=== PATIENT | female | born 1995 | race Two or more races ===

== ENCOUNTER 2019-04-07 22:36 | Emergency (ER) | payer SELFPAY ==
[~2019-04-07] VITALS: Ht 157.5 cm; Wt 58.9 kg
[2019-04-07 22:38] VITALS: BP 111/79
== END 2019-04-08 00:34 | disposition left against medical advice (07) ==
LOC: M ED 22:36
DX: Z53.21 Procedure and treatment not carried out due to patient leaving prior to being seen by health care provider (principal)

== ENCOUNTER 2019-09-29 16:01 | Emergency (ER) | payer OTHER, SELFPAY ==
[~2019-09-29] VITALS: Ht 157.5 cm; Wt 73.5 kg
[2019-09-29 16:02] VITALS: BP 125/75
[2019-09-29] MEDS ORDERED: diphenhydrAMINE 50MG/ML VIAL (J1200) IV STA (16:25)
[2019-09-29] MEDS ORDERED: METOCLOPRAMIDE INJ 10MG/2ML VIAL (J2765 PER 1) IV ONE (16:30)
[2019-09-29] MEDS ORDERED: NS 1,000 ML IV ONE (16:30)
--- NOTE | 2019-09-29 17:35 | REP ---
CT brain: 09/29/2019. Indication: Stroke. Technique: Unenhanced axial CT images of the brain were obtained from skull base to vertex. Comparison: None. Findings: There is no acute intracranial hemorrhage, acute cortical infarction, mass effect or hydrocephalous. Impression: No acute intracranial process. Electronically Signed by Rajat Weber DO 09/29/2019 05:26 P
--- NOTE | 2019-09-29 17:56 | REPVR ---
PROCEDURE INFORMATION: Exam: MR Head Without Contrast Exam date and time: 09/29/2019 5:47 PM Age: 24 years old Clinical indication: Visual disturbance and weakness, facial; Additional info: Right paresthesia/vision loss TECHNIQUE: Imaging protocol: MR of the head without contrast. COMPARISON: CT Head without contrast 09/29/2019 4:24 PM FINDINGS: Brain: No intracranial hemorrhage or extra-axial fluid collection. No evidence of mass effect or midline shift. No white matter abnormalities. No restricted diffusion to suggest acute infarct. Ventricles: Ventricles, cisterns, and sulci are normal. Bones/joints: Unremarkable. Sinuses: Unremarkable. Mastoid air cells: No mastoid effusion. Orbits: Unremarkable. Soft tissues: Unremarkable. IMPRESSION: No acute intracranial findings. Electronically signed by: Benito Weston On 09/29/2019 17:56:34 PM
--- NOTE | 2019-09-29 17:57 | REPVR ---
PROCEDURE INFORMATION: Exam: MR Angiogram Head Without Contrast, Arteries Exam date and time: 09/29/2019 5:47 PM Age: 24 years old Clinical indication: Visual disturbance; Diplopia; Additional info: Right paresthesia/vision loss TECHNIQUE: Imaging protocol: MR angiogram head without contrast. Exam focused on the arteries. 3D rendering: MIP and/or 3D reconstructed images were created by the technologist. COMPARISON: CT Head without contrast 09/29/2019 4:24 PM FINDINGS: Anterior cerebral arteries: Intracranial segment is patent with no significant stenosis. No aneurysm. Right internal carotid artery: Intracranial segment is patent with no significant stenosis. No aneurysm. Right middle cerebral artery: No occlusion or significant stenosis. No aneurysm. Right posterior cerebral artery: No occlusion or significant stenosis. No aneurysm. Right vertebral artery: No occlusion or significant stenosis. No aneurysm. Left internal carotid artery: Intracranial segment is patent with no significant stenosis. No aneurysm. Left middle cerebral artery: No occlusion or significant stenosis. No aneurysm. Left posterior cerebral artery: No occlusion or significant stenosis. No aneurysm. Left vertebral artery: No occlusion or significant stenosis. No aneurysm. Basilar artery: No occlusion or significant stenosis. No aneurysm. IMPRESSION: No MRA evidence of intracranial arterial occlusion or significant stenosis. Electronically signed by: Benito Weston On 09/29/2019 17:57:17 PM
[2019-09-29] MEDS ORDERED: KETOROLAC 30 MG/ML 1ML VIAL IV ONE (18:00)
== END 2019-09-29 19:27 | disposition home or self-care (01) ==
LOC: M ED 16:01
DX: G43.809 Other migraine, not intractable, without status migrainosus (principal)
CPT/HCPCS: 70450; 70544; 70551; 96361; 96374; 96375; 99283; J1200; J1885; J2765

== ENCOUNTER 2019-12-06 12:09 | Emergency (ER) | payer OTHER ==
[~2019-12-06] VITALS: Ht 157.5 cm; Wt 77.1 kg
[2019-12-06] MEDS ORDERED: [UNRECOGNIZED DRUG - OTHER] (12:16)
[2019-12-06] MEDS ORDERED: dexameTHASONE 4 MG/ML 1ML VIAL (J1100 PER 1MG) IV ONE (13:30)
[2019-12-06] MEDS ORDERED: NS 1,000 ML IV ONE (13:30)
[2019-12-06] MEDS ORDERED: ACETAMINOPHEN 500 MG TAB PO ONE (13:30)
[2019-12-06] MEDS ORDERED: diphenhydrAMINE 50MG/ML VIAL (J1200) IV ONE (13:30)
[2019-12-06] MEDS ORDERED: KETOROLAC 30 MG/ML 1ML VIAL IM ONE (13:30)
[2019-12-06] MEDS ORDERED: KETOROLAC 30 MG/ML 1ML VIAL IV ONE (14:00)
[2019-12-06 14:01] LABS: BASO # 0.1 10^3/uL (0.0-0.2); BASO % 0.7 % (0.0-1.0); EOS # 0.1 10^3/uL (0.0-0.5); EOS % 1.1 % (0.0-3.0); HEMATOCRIT 41.3 % (36.0-47.0); HEMOGLOBIN 13.5 g/dl (12.0-15.5); LYMPH # 2.8 10^3/uL (1.5-5.0); LYMPH % 34.7 % (24.0-44.0); MEAN CORPUSCULAR HEMOGLOBIN 27.6 pg (27.0-33.0); MEAN CORPUSCULAR HGB CONC 32.7 g/dl (32.0-36.5); MEAN CORPUSCULAR VOLUME 84.5 fl (80.0-96.0); MONO # 0.5 10^3/uL (0.0-0.8); MONO % 6.1 % (0.0-5.0); NEUTROPHILS # 4.6 10^3/uL (1.5-8.5); NEUTROPHILS % 57.2 % (36.0-66.0); PLATELET COUNT, AUTOMATED 366 10^3/uL (150-450); RED BLOOD COUNT 4.89 10^6/uL (4.00-5.40); WHITE BLOOD COUNT 8.1 10^3/uL (4.0-10.0)
--- NOTE | 2019-12-06 14:47 | REPVR ---
PROCEDURE INFORMATION: Exam: CT Head Without Contrast Exam date and time: 12/06/2019 2:29 PM Age: 24 years old Clinical indication: Weakness, facial; Additional info: L sided facial weakness TECHNIQUE: Imaging protocol: Computed tomography of the head without contrast. Radiation optimization: All CT scans at this facility use at least one of these dose optimization techniques: automated exposure control; mA and/or kV adjustment per patient size (includes targeted exams where dose is matched to clinical indication); or iterative reconstruction. COMPARISON: CT Head without contrast 09/29/2019 4:24 PM FINDINGS: Brain: Normal. No hemorrhage. Unremarkable white matter. No mass effect. Ventricles: No ventriculomegaly. Bones/joints: Unremarkable. No acute fracture. Paranasal sinuses: Visualized sinuses are unremarkable. No fluid levels. Mastoid air cells: Visualized mastoid air cells are well aerated. Soft tissues: Unremarkable. IMPRESSION: No acute intracranial abnormality. Electronically signed by: Ruth Rodriguez On 12/06/2019 14:47:17 PM
[2019-12-06 15:09] VITALS: BP 110/72
[2019-12-06 15:13] LABS: BLOOD UREA NITROGEN 12 MG/DL (7-18); CALCIUM LEVEL 8.3 MG/DL (8.5-10.1); CARBON DIOXIDE LEVEL 26 MEQ/L (21-32); CHLORIDE LEVEL 109 MEQ/L (98-107); GLOMERULAR FILTRATION RATE > 60.0 (>60); GLUCOSE, FASTING 97 MG/DL (70-100); POTASSIUM SERUM 3.9 MEQ/L (3.5-5.1); SODIUM LEVEL 142 MEQ/L (136-145)
== END 2019-12-06 15:14 | disposition home or self-care (01) ==
LOC: M ED 12:09
DX: G43.909 Migraine, unspecified, not intractable, without status migrainosus (principal)
CPT/HCPCS: 36415; 70450; 80048; 85025; 96361; 96374; 96375; 99284; J1100; J1200; J1885

== ENCOUNTER 2021-02-28 10:01 | Emergency (ER) | payer OTHER ==
[~2021-02-28] VITALS: Ht 157.5 cm; Wt 77.3 kg
[~2021-02-28 10:01] MED LIST: [UNRECOGNIZED DRUG - OTHER]
--- OUTSIDE RECORDS SUMMARY | 2021-02-28 10:06 | CCD | Continuity of Care Document ---
Author Author Lion MCINTOSH M.D. Organization Unknown Address [address] [place] [address] Phone [phone] Problems Active Problems Provider Date Migraine Breana Mcintosh M.D. Onset: 12/24/2019 Social History Type Date Description Comments Sex Unknown Tobacco Use Start: Unknown Patient has never smoked Allergies and adverse reactions Description No Known Drug Allergies Medications Active Medications SIG Qnty Indications Ordering Provide r Date Amitriptyline HCL 25mg Tablets Take 2 tabs at bedtime for 1 week then 1 tab at bedtime for one week then stop. 21corey Mcintosh M.D. 01/25/2021 Amitriptyline HCL 75mg Tablets Take one tablet at bedtime. 30corey Mcintosh M.D. 021 Nurtec 75mg Tablets Dispers take at the immediate onset of migraine. Contraindication for Triptans with history of complex migraines. 8corey Mcintosh M.D. 020 Excedrin Migraine [phone] Tab lets 1-2 tabs as needed daily for headaches. 60tapamella gallegos M.D. Medications Administered in Office Medication SIG Qnty Indications Ordering Provider Date Injection fremanezumab-vfrm 1 Inj ection Breana Mcintosh M.D. 07/07/2020 Immunizations Description No Information Available Vital Signs Date Vital Result Comment 01/25/2021 12:18pm Respiratory Rate 12 /min Height 62 inches 5'2" Weight 154.00 lb BMI (Body Mass Index) 28.2 kg/m2 [place] [facility] Weight 110 lb 10/19/2020 11:31am Respiratory Rate 12 /min Height 62 inches 5'2" Weight 154.00 lb BMI (Body Mass Index) 28.2 kg/m2 [place] Body Weight 110 lb Results Description No Information Available Procedures Date Code Description Status 10/19/2020 67232 Office/Outpatient Established Mo d MDM 30-39 Min Completed Medical Devices Description No Information Available Encounters Type Date Location Provider Dx Diagnosis Office Visit 10/19/2020 11:15a Main office - [place] Breana gallegos M.D. G43.719 Chronic migraine w/o aura, intractable, w/o stat migr Assessments Date Code Description Provider 01/25/2021 G43.719 Chronic migraine wit hout aura, intractable, without status migrainosus Breana Mcintosh M.D. 10/19/2020 G43.719 Chronic migraine wit hout aura, intractable, without status migrainosus Breana Mcintosh M.D. Plan of Treatment No Information Available Functional Status Description No Information Available Mental Status Description No Information Available Referrals Description No Information Available
--- OUTSIDE RECORDS SUMMARY | 2021-02-28 10:06 | CCD | Continuity of Care Document ---
Author Author Lion MCINTOSH M.D. Organization Unknown Address [address] [place] [address] Phone [phone] Problems Active Problems Provider Date Migraine Breana [...] 75mg Tablets Take one tablet at bedtime. 30tapamella Mcintosh M.D. 021 Nurtec 75mg Tablets Dispers take at the immediate onset of migraine. Contraindication for Triptans with history of complex migraines. 8corey Mcintosh M.D. 020 Excedrin Migraine [phone] Tab lets 1-2 tabs as needed daily for headaches. 60tapamella gallegos M.D. Medications Administered in Office Medication SIG Qnty Indications Ordering Provider Date Injection fremanezumab-vfrm 1 Inj ection Breana Mcintosh M.D. 07/07/2020 Immunizations Description No Information Available Vital Signs Date Vital Result Comment 01/25/2021 12:18pm Respiratory Rate 12 /min Height 62 inches 5'2" Weight 154.00 lb BMI (Body Mass Index) 28.2 kg/m2 [place] Body Weight 110 lb 10/19/2020 11:31am Respiratory Rate 12 /min Height 62 inches 5'2" Weight 154.00 lb BMI (Body Mass Index) 28.2 kg/m2 [place] Body Weight 110 lb Results Description No Information Available Procedures Date Code Description Status 01/25/2021 86693 Office/Outpatient Established Mo d MDM 30-39 Min Completed 10/19/2020 18825 Office/Outpatient Established Mo d MDM 30-39 Min Completed Medical Devices Description No Information Available Encounters Type Date Location Provider Dx Diagnosis Office Visit 01/25/2021 11:30a Main office - [place] Breana gallegos M.D. G43.719 Chronic migraine w/o aura, intractable, w/o stat migr Office Visit 10/19/2020 11:15a [place] G43.719 Chronic migraine w/o aura, [...]
--- OUTSIDE RECORDS SUMMARY | 2021-02-28 10:06 | CCD ---
Author Author [facility] Organization [facility] Address Unknown Phone Unavailable Care Team Providers Care Supervisor Curing Room Name Role Phone Bharati STRONG MD Unavailable Unavailable Bharati STRONG MD Unavailable Unavailable Bharati STRONG MD Unavailable Unavailable Bharati STRONG MD Unavailable Unavailable Bharati STRONG MD Unavailable Unavailable Bharati STRONG MD Unavailable Unavailable Bharati STRONG MD Unavailable Unavailable Bharati STRONG MD Unavailable Unavailable Bharati STRONG MD Unavailable Unavailable Bharati STRONG MD Unavailable Unavailable Bharati STRONG MD Unavailable Unavailable Bharati STRONG MD Unavailable Unavailable Bharati STRONG MD Unavailable Unavailable Bharati STRONG MD Unavailable Unavailable Bharati STRONG MD Unavailable Unavailable Bharati STRONG MD Unavailable Unavailable TURRIN, BOO Unavailable Unavailable TURRIN, BOO Unavailable Unavailable TURRIN, BOO Unavailable Unavailable TACORIN, BOO Unavailable Unavailable Chi Sol MD Unavailable Unavailable Chi Sol MD Unavailable Unavailable Chi Sol MD Unavailable Unavailable Chi Sol MD Unavailable Unavailable Chi Sol MD Unavailable Unavailable Chi Sol MD Unavailable Unavailable Chi Sol MD Unavailable Unavailable Chi Sol MD Unavailable Unavailable Chi Sol MD Unavailable Unavailable Chi Sol MD Unavailable Unavailable Chi Sol MD Unavailable Unavailable Chi Sol MD Unavailable Unavailable Chi Sol MD Unavailable Unavailable Chi Sol MD Unavailable Unavailable Chi Sol MD Unavailable Unavailable Chi Sol MD Unavailable Unavailable Sol, Chi Charles MD Unavailable Unavailable Sol, Chi Charles MD Unavailable Unavailable Sol, Chi Charles MD Unavailable Unavailable Sol, Chi Charles MD Unavailable Unavailable Sol, Chi Charles MD Unavailable Unavailable Sol, Chi Charles MD Unavailable Unavailable Sol, Chi Charles MD Unavailable Unavailable Sol, Chi Charles MD Unavailable Unavailable Sol, Chi Charles MD Unavailable Unavailable Sol, Chi Charles MD Unavailable Unavailable Sol, Chi Charles MD Unavailable Unavailable Sol, L Melvin WELSH Unavailable Unavailable Sol, Chi Charles MD Unavailable Unavailable Sol, L Melvin WELSH Unavailable Unavailable Sol, L Melvin WELSH Unavailable Unavailable Sol, L Melvin WELSH Unavailable Unavailable Sol, L Melvin WELSH Unavailable Unavailable Sol, L Melvin WELSH Unavailable Unavailable Sol, L Melvin WELSH Unavailable Unavailable Sol, L Melvin WELSH Unavailable Unavailable Sol, L Melvin WELSH Unavailable Unavailable Sol, L Melvin WELSH Unavailable Unavailable Sol, Chi Charles MD Unavailable Unavailable Sol, Chi Charles MD Unavailable Unavailable Sol, Chi Charles MD Unavailable Unavailable Sol, Chi Charles MD Unavailable Unavailable Sol, Chi Charles MD Unavailable Unavailable Sol, Chi Charles MD Unavailable Unavailable Sol, Chi Charles MD Unavailable Unavailable Sol, Chi Charles MD Unavailable Unavailable Sol, Chi Charles MD Unavailable Unavailable Sol, Chi Charles MD Unavailable Unavailable Sol, Chi Charles MD Unavailable Unavailable Sol, Chi Charles MD Unavailable Unavailable Sol, Chi Charles MD Unavailable Unavailable Sunita Gardner MD Unavailable Unavailable Sunita Gardner MD Unavailable Unavailable Sunita Gardner MD Unavailable Unavailable Sunita Gardner MD Unavailable Unavailable Sunita Gardner MD Unavailable Unavailable Sunita Gardner MD Unavailable Unavailable Sunita Gardner MD Unavailable Unavailable Sunita Gardner MD Unavailable Unavailable Sunita Gardner MD Unavailable Unavailable Sunita Gardner MD Unavailable Unavailable Sunita Gardner MD Unavailable Unavailable Sunita Gardner MD Unavailable Unavailable Sunita Gardner MD Unavailable Unavailable Jj O Breana WELSH Unavailable Unavailable Sunita Gardner MD Unavailable Unavailable Sunita Gardner MD Unavailable Unavailable Sunita Gardner MD Unavailable Unavailable Sunita Gardner MD Unavailable Unavailable Sunita Gardner MD Unavailable Unavailable Jj O Breana WELSH Unavailable Unavailable Sunita Gardner MD Unavailable Unavailable Sunita Gardner MD Unavailable Unavailable Sunita Gardner MD Unavailable Unavailable Sunita Gardner MD Unavailable Unavailable Sunita Gardner MD Unavailable Unavailable Sunita Gardner MD Unavailable Unavailable Sunita Gardner MD Unavailable Unavailable Sunita Gardner MD Unavailable Unavailable Sunita Gardner MD Unavailable Unavailable Sunita Gardner MD Unavailable Unavailable Sunita Gardner MD Unavailable Unavailable Sunita Gardner MD Unavailable Unavailable Sunita Gardner MD Unavailable Unavailable Sunita Gardner MD Unavailable Unavailable Sunita Gardner MD Unavailable Unavailable Sunita Gardner MD Unavailable Unavailable Sunita Gardner MD Unavailable Unavailable Sunita Gardner MD Unavailable Unavailable Sunita Gardner MD Unavailable Unavailable Sunita Gardner MD Unavailable Unavailable Sunita Gardner MD Unavailable Unavailable Sunita Gardner MD Unavailable Unavailable Sunita Gardner MD Unavailable Unavailable Sunita Gardner MD Unavailable Unavailable Sunita Gardner MD Unavailable Unavailable Sunita Gardner MD Unavailable Unavailable Sunita Gardner MD Unavailable Unavailable Sunita Gardner MD Unavailable Unavailable Sunita Gardner MD Unavailable Unavailable Sunita Gardner MD Unavailable Unavailable Sunita Gardner MD Unavailable Unavailable Sunita Gardner MD Unavailable Unavailable Sunita Gardner MD Unavailable Unavailable Sunita Gardner MD Unavailable Unavailable Sunita Gardner MD Unavailable Unavailable Sunita Gardner MD Unavailable Unavailable Sunita Gardner MD Unavailable Unavailable Sunita Gardner MD Unavailable Unavailable Sunita Gardner MD Unavailable Unavailable Sunita Gardner MD Unavailable Unavailable Sunita Gardner MD Unavailable Unavailable Sunita Gardner MD Unavailable Unavailable Sunita Gardner MD Unavailable Unavailable Sunita Gardner MD Unavailable Unavailable Sunita Gardner MD Unavailable Unavailable Jj, O Samah MD Unavailable Unavailable Jj, O Samah MD Unavailable Unavailable Jj, O Samah MD Unavailable Unavailable Jj, O Samah MD Unavailable Unavailable Jj, O Samah MD Unavailable Unavailable Jj, O Samah MD Unavailable Unavailable Jj, O Samah MD Unavailable Unavailable Jj, O Samah MD Unavailable Unavailable Jj, O Samah MD Unavailable Unavailable Jj, O Samah MD Unavailable Unavailable Jj, O Samah MD Unavailable Unavailable Jj, O Samah MD Unavailable Unavailable Jj, O Samah MD Unavailable Unavailable Jj, O Samah MD Unavailable Unavailable Jj, O Samah MD Unavailable Unavailable Bharati STRONG MD Unavailable Unavailable Bharati STRONG MD Unavailable Unavailable Bharati STRONG MD Unavailable Unavailable ZBharati JESSICA MD Unavailable Unavailable Bharati STRONG MD Unavailable Unavailable Bharati STRONG MD Unavailable Unavailable Bharati STRONG MD Unavailable Unavailable Bharati STRONG MD Unavailable Unavailable Bharati STRONG MD Unavailable Unavailable Bharati STRONG MD Unavailable Unavailable Bharati STRONG MD Unavailable Unavailable Bharati STRONG MD Unavailable Unavailable Bharati STRONG MD Unavailable Unavailable Bharati STRONG MD Unavailable Unavailable Bharati STRONG MD Unavailable Unavailable Bharati STRONG MD Unavailable Unavailable [facility] Unavailable Unavailable Bharati Bonilla MD Unavailable Unavailable Bharati Bonilla MD Unavailable Unavailable Bharati Bonilla MD Unavailable Unavailable Bharati Bonilla MD Unavailable Unavailable Bharati Bonilla MD Unavailable Unavailable Bharati Bonilla MD Unavailable Unavailable Bharati Bonilla MD Unavailable Unavailable Re-disclosure Warning The records that you are about to access may contain information from federally-assisted alcohol or drug abuse programs. If such information is present, then the following federally mandated warning applies: This information has been disclosed to you from records protected by federal confidentiality rules (42 CFR part 2). The federal rules prohibit you from making any further disclosure of this information unless further disclosure is expressly permitted by the written consent of the person to whom it pertains or as otherwise permitted by 42 CFR part 2. A general authorization for the release of medical or other information is NOT sufficient for this purpose. The Federal rules restrict any use of the information to criminally investigate or prosecute any alcohol or drug abuse patient.The records that you are about to access may contain highly sensitive health information, the redisclosure of which is protected by Article 27-F of the [facility] Public Health law. If you continue you may have access to information: Regarding HIV / AIDS; Provided by facilities licensed or operated by the [facility] Office of Mental Health; or Provided by the [facility] Office for People With Developmental Disabilities. If such information is present, then the following [facility] mandated warning applies: This information has been disclosed to you from confidential records which are protected by state law. State law prohibits you from making any further disclosure of this information without the specific written consent of the person to whom it pertains, or as otherwise permitted by law. Any unauthorized further disclosure in violation of state law may result in a fine or shelter sentence or both. A general authorization for the release of medical or other information is NOT sufficient authorization for further disc losure. Allergies and Adverse Reactions Type Description Substance Reaction Status Data Source(s ) No Known Drug Allergies No Known Drug Allergies [facility] No Known Environmental Allergies No Known Environmental Al lergies [facility] No Known Food Allergies No Known Food Allergies [facility] Encounters Encounter Providers Location Date Indications Data Source(s ) Outpatient Attender: Breana Gardner MD [facility] 01/25/2021 11:30:00 AM EDT [facility] ([facility], ) Outpatient Attender: Breana Gardner MD [facility] 10/19/2020 11:15:00 AM EDT [facility] ([facility], ) Outpatient Attender: Héctor Bonilla MDConsultant: AUBREY RHODES CROW 07/10/2020 06:30:00 AM EDT - 07/10/2020 09:50:00 AM EDT [facility] Patient discharged. Outpatient Attender: Breana Gardner MD [facility] 07/06/2020 10:15:00 AM EDT [facility] ([facility], ) Outpatient Attender: Héctor Bonilla MD 07/05 06:59:07 AM EDT - 07/06/2020 07:41:00 AM EDT [facility] Patient discharged. Outpatient Attender: Breana Gardner MD Main office - [facility] 04/17/2020 10:15:00 AM EST [facility] ([facility] Outpatient Attender: CARMEN STRONG MD 2019 07:36:00 AM EST - 02/09/2020 08:36:00 AM EST [facility] Patient discharged. Outpatient Attender: CARMEN STRONG MD 2019 01:01:00 PM EST - 01/31/2020 01:01:00 PM EST [facility] Office Visit Attender: CARMEN STRONG MD Family Practice 2019 12:00:00 PM EST [facility] ([facility] Outpatient Attender: Melvin Sol MD Physical Therapy 01/26/2020 0 1:30:00 PM EST [facility] ([facility]) Emergency Attender: BOO FELTON 2019 09:43:00 PM EDT - 12/28/2019 12:42:00 AM EDT [facility] Patient discharged. Medications Medication Brand Name Start Date Product Form Dose Route Admi nistrative Instructions Pharmacy Instructions Status Indications Reaction Description Data Source(s) Amitriptyline Hydrochloride 25 MG Oral Tablet Amitriptyline HCL 01/25/2021 12:00:00 AM EDT active M [facility] ([facility], ) Amitriptyline Hydrochloride 75 MG Oral Tablet Amitriptyline HCL 08/07/2020 12:00:00 AM EDT active [facility] ([facility], ) Injection fremanezumab-vfrm 1 07/07/2020 12:00:00 AM EDT completed [facility] ([facility]) Medication administered onsite topiramate 50 MG Oral Tablet Topiramate 07/06/2020 12:00:00 AM EDT completed [facility] ([facility]) Amitriptyline Hydrochloride 50 MG Oral Tablet Amitriptyline HCL 07/06/2020 12:00:00 AM EDT completed [facility] ([facility], ) Ajovy Ajovy 07/06/2020 12:00:00 AM EDT SUBCUTANEOUS com pleted [facility] ([facility]) Amitriptyline Hydrochloride 25 MG Oral Tablet Amitriptyline HCL 04/17/2020 12:00:00 AM EST completed [facility] ([facility]) calcium polycarbophil 625 MG Oral Tablet [FiberCon] Fibercon 11/24/2019 12:00:00 AM EDT ORAL completed [facility] ([facility]) Insurance Providers Payer name Policy type / Coverage type Policy ID Covered alliance party ID Covered alliance party's relationship to nam Policy Nam Plan Information [facility] [employer] [id number] SP [id number] [facility] [employer] [place] [employer] [id number] [id number] [facility] [place] [id number] 18 [id number] [facility] [employer] [place] [id number] 18 [id number] SELF PAY ONLY [id number] SP [id number] Problems, Conditions, and Diagnoses Code Display Name Description Problem Type Effective Dates Data Source(s) [id number] Ganglion, right wrist Ganglion, right wrist Diagnosis 07/10/2020 06:30:00 AM EDT [facility] [id number] Encounter for other preprocedural examin ation Encounter for other preprocedural examination Diagnosis 07/06/2020 07:13:00 AM EDT [facility] R1033 Periumbilical pain Periumbilical pain Diagnosis 07:36:00 AM [facility] Surgeries/Procedures Procedure Description Date Indications Data Source(s) OFFICE OUTPATIENT VISIT 25 MINUTES 01/25/2021 12:00:00 AM EDT [facility] ([facility]) OFFICE OUTPATIENT VISIT 25 MINUTES 10/19/2020 12:00:00 AM EDT [facility] ([facility]) Chemotherpy Admin Subcutaneous/Im Non-Hormonal Anti-Neoplast ic 07/07/2020 12:00:00 AM EDT [facility] ([facility]) OFFICE OUTPATIENT VISIT 25 MINUTES 07/06/2020 12:00:00 AM EDT [facility] ([facility]) Magnetic Resonance Angiogtaphy Head W/O Contrast Material(S) 01/11/2020 12:00:00 AM EDT [facility] ([facility]) Magnetic Resonance Angiogtaphy Head W/O Contrast Material(S) 01/11/2020 12:00:00 AM EDT [facility] ([facility]) MRI BRAIN BRAIN STEM W/O CONTRAST MATERIAL 01/11/2020 12:00:00 AM EDT [facility] ([facility], ) MRI BRAIN BRAIN STEM W/O CONTRAST MATERIAL 01/11/2020 12:00:00 AM EDT [facility] ([facility], ) Results ID Date Data Source [id number] 07/10/2020 09:06:[place] [address] OPERATIVE SUMMARYNAME: BOBBY Mireles DATE OF : 1995ATTENDING PHYS: Héctor Bonilla MD DATE: 07/10/20 MR#: [id number] OF PROCEDURE: 07/10/2020URGEON: Héctor Bonilla MD.SAFETY COORDINATOR: SANDRA Garcia.INDICATION FOR OPERATION: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 She had exhausted non-operative treatmentand requested surgical excision. She was counseled on the risks and benefits of surgery. Shedemonstrated understanding of the risks of surgery to include, but not limited to infection, bleeding,damage to local structures, pain, stiffness, need for further surgery, recurrence, and she was able tosign informed consent. All questions were answered to her full satisfaction.PRE-OP DIAGNOSIS: Right wrist dorsal ganglion.POST-OP DIAGNOSIS: Right wrist dorsal ganglion.MATERIAL FORWARDED: None.DESCRIPTION OF THE FINDINGS:Patient had an approximately 2 x 1 cm cyst arising from the SL interval. This was removed en bloc.A small portion of the capsule was torn as it came out. This was then repaired with 3-0 FiberWire.The patient was then taken through a super-physiological range of motion of her wrist. Itdemonstrated stability, no instability of the wrist joint.INFECTION CLASSIFICATION: I, clean.ESTIMATED BLOOD LOSS: 0 cc.OPERATION PERFORMED: Right wrist dorsal ganglion excision.DESCRIPTION OF OPERATION:The patient was met in the pre-op holding area, where the correct name, identity, operative site, andlaterality of the procedure were verified to be correct without discrepancies. The operative site wasmarked by myself. The patient was then taken to the operating room by nursing and anesthesiaproviders, placed supine on the operating room table. All bony prominences were padded in thestandard fashion. A brachial pneumatic tourniquet was placed on the right upp er extremity. SCDswere placed on the lower extremities, turned on and to remain on throughout the case. The patient [address] [place] [address] OPERATIVE SUMMARYNAME: BOBBY Mireles DATE OF : 1995ATTENDING PHYS: Héctor Bonilla MD DATE: 07/10/20 MR#: [id number] underwent general anesthetic and placement of advanced airway without complication. Thepatient was then prepped and draped in the usual sterile fashion. Time-out was then called, wherewe verified the correct patient's name, identity, operative site, and laterality of the procedure as wellas antibiotic administration with weight-based Ancef within one hour of incision as well.The tourniquet was inflated to 250 mmHg. Total tourniquet time was approximately 35 minutes.Patient then had the incision marked over the palpable cyst. Incision was carried down to below theextensor retinaculum. This was split transversely to allow to visualization of the extensor tendons.These were mobilized and protected. Care was taken to protect these throughout the case and nonewere injured. The ganglion cyst was then identified, mobilized, and removed en bloc. Again, asmall portion of the capsule was torn when this was removed, and this was repaired with 3-0FiberWire. After this, the wound was copiously irrigated and stability checked through superphysiological range of motion was performed. The wrist was stable. The wound was then copiouslyirrigated and closed in layers. The patient then had a bulky soft dressing applied that was sterile.Once dressings were applied, the patient was then aroused from anesthesia, having tolerated theprocedure well, and taken to the PACU for recovery.Post-operatively she will remain in her dressing until we see her in follow up in about 7-10 days. Atthat point, she will begin gentle range of motion. No weightbearing exercises through the wrist, atleast 4-6 weeks after surgery. She received pre-op antibiotics. No post-op antibiotics are indicated.No post-op DVT chemoprophylaxis indicated.DD: Héctor Bonilla MD 07/10/20 08:31DT: [facility] 07/10/20 08:34DS: Héctor Bonilla MD 07/14/20 11:25 2 Name Value Range Interpretation Code Description Data Jane rce(s) Supporting Document(s) ID Date Data Source [id number] 07/05/2020 10:19:00 AM EDT [facility] Name Value Range Interpretation Code Description Data Jane rce(s) Supporting Document(s) SARS coronavirus 2 RNA Not Detected [facility] [place] This lab was ordered by [facility] and reported by [facility]. ID Date Data Source [id number] 02/10/2020 01:59:00 PM EST [facility] [address] [place] [address] PHONE: [phone] FAX: [phone] Name .................. : BOBBY Mireles Acct Number.................. : [id number] ROOM. ................. : Number ................... : [id number] Stay type ............. : O/P Discharge Date......... ... : 02/09/20 Admit Date ......... : 02/09/20 Admit Phys .................... : SELIN Date of ....... : 1995 Family Phys ................... : UNKNOWN Phone .................. : [phone] Age ................................ : 24 Film# .................. .:[id number] Sex ................................. : F Unsigned transcriptions are preliminary reports and do not represent a medical or legal document [facility] [id number] COMPLETE:02/09/20 08:49 KNB [id number] (REASON FOR ABDOMEN: periumbilical pain, recurrent hernia vs fluid cristian LIMITED ABDOMINAL ULTRASOUND: FINDINGS: Sonography of the anterior abdominal wall in the area of clinical concern was performed. Space occupying mass or ventral hernia is not seen. IMPRESSION: Unremarkable sonography anterior abdominal wall in the area of clinical concern. Mass or ventral hernia not appreciated. Electronically Reviewed and Signed By Ezra Conklin MD , 02/10/20 13:59, KGG Transcribe Initials: DZ , Transcribe Date: 02/09/20 15:17, Dictation Date: Copy for: LIGIA Calabrese via fax Copy for: [address] [place] [address] Page 1 of 1 Name Value Range Interpretation Code Description Data Jane rce(s) Supporting Document(s) ID Date Data Source [id number] 02/08/2020 09:53:00 AM EST [facility] ([facility] ) Name Value Range Interpretation Code Description Data Jane rce(s) Supporting Document(s) Laboratory test finding (navigational concept) [facility] Procedure Social History No Information Vital Signs ID Date Data Source UNK Name Value Range Interpretation Code Description Data Source(s) Respiratory rate 12 /min 12 /min [facility] ( [facility], ) Body height 62 [in_i] 62 [in_i] [facility] ([facility], ) 5'2" Body weight 154.00 [lb_av] 154.00 [lb_av] [facility] T ([facility], ) Body mass index (BMI) [Ratio] 28.2 kg/m2 28.2 k g/m2 [facility] Lagrange body weight 110 [lb_av] 110 [lb_av] [facility] T ([facility], ) Respiratory rate 12 /min 12 /min [facility] ( [facility], ) Body height 62 [in_i] 62 [in_i] [facility] ([facility], ) 5'2" Body weight 154.00 [lb_av] 154.00 [lb_av] [facility] T ([facility], ) Body mass index (BMI) [Ratio] 28.2 kg/m2 28.2 k g/m2 [facility] ([facility]) Lagrange body weight 110 [lb_av] 110 [lb_av] [facility] T ([facility], ) Body height 62 [in_i] 62 [in_i] [facility] ([facility], ) 5'2" Body mass index (BMI) [Ratio] 28.2 kg/m2 28.2 k g/m2 [facility] ([facility], ) Lagrange body weight 110 [lb_av] 110 [lb_av] [facility] T ([facility], ) Respiratory rate 12 /min 12 /min [facility] ( [facility]) Body weight 154.00 [lb_av] 154.00 [lb_av] [facility] T ([facility], ) Body height 62 [in_i] 62 [in_i] [facility] ([facility]) 5'2" Body weight 154.00 [lb_av] 154.00 [lb_av] [facility] T ([facility], ) Respiratory rate 12 /min 12 /min [facility] ( [facility], ) Body mass index (BMI) [Ratio] 28.2 kg/m2 28.2 k g/m2 [facility] ([facility]) Lagrange body weight 110 [lb_av] 110 [lb_av] [facility] T ([facility], ) Systolic blood pressure 120 mm[Hg] 120 mm[Hg] M [facility] ([facility]) Diastolic blood pressure 80 mm[Hg] 80 mm[Hg] [facility] ([facility]) Heart rate 104 /min 104 /min [facility] ([facility]) Oxygen saturation in Arterial blood by Pulse oximetry 99 % 99 % [facility] ([facility]) Body temperature 97.5 [degF] 97.5 [degF] [facility] ([facility] ) Body height 61.75 [in_i] 61.75 [in_i] [facility] ([facility] 5'1.75" Body weight 168.00 [lb_av] 168.00 [lb_av] ROBSON Araiza ([facility]) Body mass index (BMI) [Ratio] 31.0 kg/m2 31.0 k g/m2 [facility] ([facility]) ID Date Data Source [id number] 07/14/2020 11:25:58 AM EDT [facility] Name Value Range Interpretation Code Description Data Source(s) WEIGHT RECORDED 158.00 pounds 158.00 pounds [facility] Height 62 Inches 062 Inches [facility]
[2021-02-28] MEDS ORDERED: IBUP-1720 (10:39)
[2021-02-28] MEDS ORDERED: AMIT25TA17 (10:39)
--- NOTE | 2021-02-28 11:02 | REP ---
INDICATION: pain COMPARISON: None. TECHNIQUE: AP, lateral, bilateral oblique and sunrise views. FINDINGS: The osseous structures and joint spaces are intact and normal. There is no evidence for acute fracture or dislocation. No joint effusion is appreciated. Surrounding soft tissues are unremarkable. No subcutaneous emphysema or radiodense foreign body. IMPRESSION: Normal age-appropriate left knee examination. No acute fracture or dislocation. <Electronically signed by Felipe Parks > 02/28/21 [id number]
--- OUTSIDE RECORDS SUMMARY | 2021-02-28 12:15 | CCD ---
Author Author [facility] Organization [facility] Address Unknown Phone Unavailable Care Team Providers Care Analog Ic Design Engineer Name Role Phone Bharati STRONG MD Unavailable [...] Unavailable Sol, Chi Charles MD Unavailable Unavailable Osl, L Melvin WELSH Unavailable Unavailable Sol, Chi [...] Unavailable Bharati STRONG MD Unavailable Unavailable [facility] Unavailable Unavailable Bharati Bonilla MD Unavailable [...] is protected by Article 27-F of the [facility] Public Health law. If you continue you may have access to information: Regarding HIV / AIDS; Provided by facilities licensed or operated by the [facility] Office of Mental Health; or Provided by the [facility] Office for People With Developmental Disabilities. If such information is present, then the following [facility] mandated warning applies: This information has been [...] law may result in a fine or longterm sentence or both. A general authorization for the release of medical or other information is NOT sufficient authorization for further disc losure. Allergies and Adverse Reactions Type Description Substance Reaction Status Data Source(s ) No Known Drug Allergies No Known Drug Allergies [facility] No Known Environmental Allergies No Known Environmental Al lergies [facility] No Known Food Allergies No Known Food Allergies [facility] Encounters Encounter Providers Location Date Indications Data Source(s ) Outpatient Attender: Breana Gardner MD [facility] 01/25/2021 11:30:00 AM EDT [facility] ([facility] Outpatient Attender: Breana Gardner MD [facility] 10/19/2020 11:15:00 AM EDT [facility] ([facility]) Outpatient Attender: Héctor Bonilla MDConsultant: [facility] 07/10/2020 06:30:00 AM EDT - 07/10/2020 09:50:00 AM EDT [facility] Patient discharged. Outpatient Attender: Breana Gardner MD [facility] 07/06/2020 10:15:00 AM EDT [facility] ([facility]) Outpatient Attender: Héctor Bonilla MD 07/05 06:59:07 AM EDT - 07/06/2020 07:41:00 AM EDT [facility] Patient discharged. Outpatient Attender: Breana Gardner MD Main office - [facility] 04/17/2020 10:15:00 AM EST [facility] ([facility]) Outpatient Attender: CARMEN STRONG MD 2019 07:36:00 AM EST - 02/09/2020 08:36:00 AM EST [facility] Patient discharged. Outpatient Attender: CARMEN STRONG MD 2019 01:01:00 PM EST - 01/31/2020 01:01:00 PM EST [facility] Office Visit Attender: CARMEN STRONG MD Family Practice 2019 12:00:00 PM EST [facility] Outpatient Attender: Melvin oSl MD Physical Therapy 01/26/2020 0 1:30:00 PM EST [facility] ([facility]) Emergency Attender: BOO FELTON 2019 09:43:00 PM EDT - 12/28/2019 12:42:00 AM EDT [facility] Patient discharged. Medications Medication Brand Name Start Date Product Form Dose Route Admi nistrative Instructions Pharmacy Instructions Status Indications Reaction Description Data Source(s) Amitriptyline Hydrochloride 25 MG Oral Tablet Amitriptyline HCL 01/25/2021 12:00:00 AM EDT active [facility] ([facility] Amitriptyline Hydrochloride 75 MG Oral Tablet Amitriptyline HCL 08/07/2020 12:00:00 AM EDT active [facility] ([facility] ) Injection fremanezumab-vfrm 1 07/07/2020 12:00:00 AM EDT completed [facility] ([facility] ) Medication administered onsite topiramate 50 MG Oral Tablet Topiramate 07/06/2020 12:00:00 AM EDT completed [facility] ([facility]) Amitriptyline Hydrochloride 50 MG Oral Tablet Amitriptyline HCL 07/06/2020 12:00:00 AM EDT completed [facility] ([facility] ) Ajovy Ajovy 07/06/2020 12:00:00 AM EDT SUBCUTANEOUS com pleted [facility] ([facility] ) Amitriptyline Hydrochloride 25 MG Oral Tablet Amitriptyline HCL 04/17/2020 12:00:00 AM EST completed [facility] ([facility]) calcium polycarbophil 625 MG Oral Tablet [FiberCon] Fibercon 11/24/2019 12:00:00 AM EDT ORAL completed [facility] ([facility]) Insurance Providers Payer name Policy type / Coverage type Policy ID Covered republican ID Covered republican's relationship to nam Policy Nam Plan Information [facility] ACTIVE DUTY [id number] SP [id number] [facility] [employer] [place] [id number] 18 [id number] [facility] [place] [id number] 18 [id number] [facility] [employer] [place] [id number] 18 [id number] SELF PAY ONLY [id number] SP [id number] Problems, Conditions, and Diagnoses Code Display Name Description Problem Type Effective Dates Data Source(s) T04040 Ganglion, right wrist Ganglion, right wrist Diagnosis 07/10/2020 06:30:00 AM EDT [facility] [id number] Encounter for other preprocedural examin ation Encounter for other preprocedural examination Diagnosis 07/06/2020 07:13:00 AM EDT [facility] [id number] Periumbilical pain Periumbilical pain Diagnosis 07:36:00 AM [facility] Surgeries/Procedures Procedure Description Date Indications Data Source(s) OFFICE OUTPATIENT VISIT 25 MINUTES 01/25/2021 12:00:00 AM EDT [facility] ([facility]) OFFICE OUTPATIENT VISIT 25 MINUTES 10/19/2020 12:00:00 AM EDT [facility] ([facility]) Chemotherpy Admin Subcutaneous/Im Non-Hormonal Anti-Neoplast ic 07/07/2020 12:00:00 AM EDT [facility] ([facility] OFFICE OUTPATIENT VISIT 25 MINUTES 07/06/2020 12:00:00 AM EDT [facility] ([facility]) Magnetic Resonance Angiogtaphy Head W/O Contrast Material(S) 01/11/2020 12:00:00 AM EDT [facility] ([facility] Magnetic Resonance Angiogtaphy Head W/O Contrast Material(S) 01/11/2020 12:00:00 AM EDT [facility] ([facility] MRI BRAIN BRAIN STEM W/O CONTRAST MATERIAL 01/11/2020 12:00:00 AM EDT [facility] ([facility] MRI BRAIN BRAIN STEM W/O CONTRAST MATERIAL 01/11/2020 12:00:00 AM EDT [facility] ([facility] ) Results ID Date Data Source [id number] 07/10/2020 09:06:00 [place] [address] OPERATIVE SUMMARYNAME: BOBBY Mireles DATE OF : 1995ATTENDING PHYS: Héctor Bonilla MD DATE: 07/10/20 MR#: [id number] OF PROCEDURE: 07/10/2020URGEON: Héctor Bonilla MD.ANIMAL CARETAKER: SANDRA Garcia.INDICATION FOR OPERATION:The patient is a [...] on throughout the case. The patient [address] [place] [id number] OPERATIVE SUMMARYNAME: BOBBY Mireles DATE OF : 1995ATTENDING PHYS: Héctor Bonilla MD DATE: 07/10/20 MR#: [id number] underwent general anesthetic and placement of advanced [...] rce(s) Supporting Document(s) ID Date Data Source [id number] 07/05/2020 10:19:00 AM EDT [facility] Name Value Range Interpretation Code Description Data Jane rce(s) Supporting Document(s) SARS coronavirus 2 RNA Not Detected [facility] [place] This lab was ordered by [facility] and reported by [facility]. ID Date Data Source [id number] 02/10/2020 01:59:00 PM EST [facility] [address] [place] [address] PHONE: [phone] FAX: [phone] Name .................. : BOBBY Mireles Acct Number.................. : [id number] ROOM. ................. : Number ................... : [id number] Stay type ............. : O/P Discharge Date......... ... : 02/09/20 Admit Date ......... : 02/09/20 Admit Phys .................... : SELIN Date of ....... : 1995 Family Phys ................... : UNKNOWN Phone .................. : [phone] Age ................................ : 24 Film# .................. .:[id number] Sex ................................. : F Unsigned transcriptions are preliminary reports and do not represent a medical or legal document ABD LIMITED [id number] COMPLETE:02/09/20 08:49 KNB [id number] (REASON FOR ABDOMEN: periumbilical pain, recurrent hernia [...] for: LIGIA Calabrese via fax Copy for: [address] [place] [address] Page 1 of 1 Name Value Range Interpretation Code Description Data Jane rce(s) Supporting Document(s) ID Date Data Source [id number] 02/08/2020 09:53:00 AM EST [facility] ([facility] ) Name Value Range Interpretation Code Description Data Jane rce(s) Supporting Document(s) Laboratory test finding (navigational concept) Laboratory test result [facility] ([facility] Procedure Social History No Information Vital Signs ID Date Data Source UNK Name Value Range Interpretation Code Description Data Source(s) Respiratory rate 12 /min 12 /min [facility] ( [facility], ) Body height 62 [in_i] 62 [in_i] [facility] ([facility], ) 5'2" Body weight 154.00 [lb_av] 154.00 [lb_av] [facility] T ([facility], ) Body mass index (BMI) [Ratio] 28.2 kg/m2 28.2 k g/m2 [facility] ([facility] ) [place] body weight 110 [lb_av] 110 [lb_av] [facility] T ([facility], ) Respiratory rate 12 /min 12 /min [facility] ( [facility], ) Body height 62 [in_i] 62 [in_i] [facility] ([facility] ) 5'2" Body weight 154.00 [lb_av] 154.00 [lb_av] [facility] T ([facility], ) Body mass index (BMI) [Ratio] 28.2 kg/m2 28.2 k g/m2 [facility] ([facility]) [place] body weight 110 [lb_av] 110 [lb_av] [facility] T ([facility], ) Body height 62 [in_i] 62 [in_i] [facility] ([facility], ) 5'2" Body mass index (BMI) [Ratio] 28.2 kg/m2 28.2 k g/m2 [facility] ([facility], ) [place] body weight 110 [lb_av] 110 [lb_av] [facility] T ([facility]) Respiratory rate 12 /min 12 /min [facility] ( [facility]) Body weight 154.00 [lb_av] 154.00 [lb_av] [facility] T ([facility], ) Body height 62 [in_i] 62 [in_i] [facility] ([facility]) 5'2" Body weight 154.00 [lb_av] 154.00 [lb_av] [facility] T ([facility], ) Respiratory rate 12 /min 12 /min [facility] ( [facility]) Body mass index (BMI) [Ratio] 28.2 kg/m2 28.2 k g/m2 [facility] ([facility]) [place] body weight 110 [lb_av] 110 [lb_av] [facility] T ([facility], ) Systolic blood pressure 120 mm[Hg] 120 mm[Hg] M [facility] ([facility]) Diastolic blood pressure 80 mm[Hg] 80 mm[Hg] [facility] ([facility]) Heart rate 104 /min 104 /min [facility] ([facility]) Oxygen saturation in Arterial blood by Pulse oximetry 99 % 99 % [facility] ([facility]) Body temperature 97.5 [degF] 97.5 [degF] [facility] ([facility] ) Body height 61.75 [in_i] 61.75 [in_i] [facility] ([facility]) 5'1.75" Body weight 168.00 [lb_av] 168.00 [lb_av] ROBSON Araiza ([facility]) Body mass index (BMI) [Ratio] 31.0 kg/m2 31.0 k g/m2 [facility] ([facility]) ID Date Data Source [id number] 07/14/2020 11:25:58 AM EDT [facility] Name Value Range Interpretation Code Description Data Source(s) WEIGHT RECORDED 158.00 pounds 158.00 pounds [facility] Height 62 Inches 062 Inches [facility]
[2021-02-28] MEDS ORDERED: NAPR-837 PO (12:40)
[2021-02-28 13:08] VITALS: BP 122/78
== END 2021-02-28 13:09 | disposition home or self-care (01) ==
LOC: M ED 10:01
DX: M25.562 Pain in left knee (principal)

== ENCOUNTER → 2021-03-07 | Outpatient (REF) ==
[~2021-03-07] MED LIST changes: +AMIT25TA17; +IBUP-1720; +NAPR-837 PO
--- NOTE | 2021-03-07 12:18 | REP ---
INDICATION: CALCULUS OF BILE DUCT W/O CHOLANGITIS OR CHOLECYST W OBST COMPARISON: None. TECHNIQUE: PA and lateral. FINDINGS: Lateral view best demonstrates pectus excavatum. The cardiac silhouette is normal. The lung villalobos are clear and without acute consolidation, effusion, or pneumothorax. The skeletal structures are intact. IMPRESSION: Pectus excavatum. No acute cardiopulmonary process. <Electronically signed by Felipe Parks > 03/07/21 [id number]
--- NOTE | 2021-03-07 12:21 | REP ---
INDICATION: CALCULUS OF BILE DUCT W/O CHOLANGITIS OR CHOLECYST W OBST. COMPARISON: None. TECHNIQUE: Water's, PA, lateral, and SMV views FINDINGS: The sinuses are relatively well aerated and clear. No obvious mucosal thickening. No fluid level or foreign body. The surrounding osseous structures are intact and normal. IMPRESSION: Normal sinus radiograph series. <Electronically signed by Felipe Parks > 03/07/21 [id number]
== END ==
LOC: M PLAIMG 10:10
PROVIDERS: ATTEND Internal Medicine
DX: R06.02 Shortness of breath (principal)